=== PATIENT | female | born 1980 | race Caucasian/White ===

== ENCOUNTER 2017-08-03 21:39 | Emergency (ER) | payer OTHER ==
[2017-08-03] MEDS: IPRATRPIUM/ALBUTEROL 0.5/2.5MG 3 ML NEBU. NEB ×2 (22:45)
[2017-08-03 22:53] LABS: INFLUENZA A PATIENT NEGATIVE (NEGATIVE); INFLUENZA B PATIENT NEGATIVE (NEGATIVE); OBC FLU VALID
== END 2017-08-03 23:28 | disposition home or self-care (01) ==
LOC: ER 21:39
DX: J40 Bronchitis, not specified as acute or chronic (principal)
CPT/HCPCS: 71046; 87804; 87804-59; 94640; 99285-25; J7620

== ENCOUNTER 2019-02-14 15:49 | Emergency (ER) | payer OTHER ==
[~2019-02-14] VITALS: Ht 144.8 cm; Wt 90.7 kg
[~2019-02-14 15:49] MED LIST: ALBU2.5V8 INH; AZIT250T PO; BENZ100C PO; HYDR-3164 PO; NAPR-682 PO; PRED50TA PO
[2019-02-14 17:05] VITALS: BP 132/83
--- NOTE | 2019-02-14 17:13 | PHYS DOC ---
Past Medical History Past Medical History: No Pertinent History Past Surgical History: Additional Past Surgical Histo: x 2 Alcohol Use: Rarely Drug Use: None Adult General Chief Complaint Chief Complaint: LACERATION/AVULSION HPI HPI Patient is a 38 year old female that presents after slicing potatoes and cutting part of her third right digit. Patient states her pain as 7 out of 10 in severity and throbs. The patient denies taking medicine prior to arrival. She states this happened around 3:00 PM today. Review of Systems Review of Systems Constitutional: Denies fever or chills [] Eyes: Denies change in visual acuity, redness, or eye pain [] HENT: Denies nasal congestion or sore throat [] Respiratory: Denies cough or shortness of breath [] Cardiovascular: No additional information not addressed in HPI [] GI: Denies abdominal pain, nausea, vomiting, bloody stools or diarrhea [] : Denies dysuria or hematuria [] Musculoskeletal: Denies back pain or joint pain [] Integument: Reports cut to R 3rd digit Neurologic: Denies headache, focal weakness or sensory changes [] Endocrine: Denies polyuria or polydipsia [] Complete systems were reviewed and found to be within normal limits, except as documented in this note. Allergies Allergies Allergies Coded Allergies Type Severity Reaction Last Updated Verified No Known Drug Allergies 09/06/13 No Physical Exam Physical Exam Constitutional: Well developed, well nourished, no acute distress, non-toxic appearance. [] HENT: Normocephalic, atraumatic, bilateral external ears normal, oropharynx thalia st, no oral exudates, nose normal. [] Eyes: PERRLA, EOMI, conjunctiva normal, no discharge. [] Neck: Normal range of motion, no tenderness, supple, no stridor. [] Cardiovascular:Heart rate regular rhythm, no murmur [] Lungs & Thorax: Bilateral breath sounds clear to auscultation [] Abdomen: Bowel sounds normal, soft, no tenderness, no masses, no pulsatile masses. [] Skin: Fingertip avulsion R 3rd digit. Back: No tenderness, no CVA tenderness. [] Extremities: No tenderness, no cyanosis, no clubbing, ROM intact, no edema. [] Neurologic: Alert and oriented X 3, normal motor function, normal sensory function, no focal deficits noted. [] Psychologic: Affect normal, judgement normal, mood normal. [] EKG EKG [] Radiology/Procedures Radiology/Procedures [] Course & Med Decision Making Course & Med Decision Making Pertinent Labs and Imaging studies reviewed. (See chart for details) Patient is a fingertip avulsion to the right third digit. Discussed with patient and advised her to keep a dressing on it and use Neosporin. Patient had a Tetanus shot last year. Dragon Disclaimer Dragon Disclaimer This electronic medical record was generated, in whole or in part, using a voice recognition dictation system. Departure Departure Impression: Primary Impression: Fingertip avulsion Disposition: HOME, SELF-CARE Condition: STABLE Referrals: LINA LINDA MD (PCP) Patient Instructions: Finger Avulsion Additional Instructions: Thank you for visiting [facility]. We appreciate you trusting us with your care. If any additional problems come up don't hesitate to return to visit us. Please follow up with your primary care provider so they can plan additional care if needed and know about the problem that you had. If symptoms worsen come back to the Emergency Department. Any concerning symptoms that start such as chest pain, shortness of air, weakness or numbness on one side of the body, running high fevers or any other concerning symptoms return to the ER. Keep a dressing on fingertip and use Neosporin. If you notice any signs and symptoms of infection return to ER. Problem Qualifiers Primary Impression: Fingertip avulsion Encounter type: initial encounter Qualified Codes: S61.209A - Unspecified open wound of unspecified finger without damage to nail, initial encounter LINA JUARES APRN Feb 14, 2019 17:13
== END 2019-02-14 17:27 | disposition home or self-care (01) ==
LOC: ER 15:49
DX: S61.202A Unspecified open wound of right middle finger without damage to nail, initial encounter (principal); Z98.890 Other specified postprocedural states; W26.8XXA Contact with other sharp object(s), not elsewhere classified, initial encounter; Y93.G3 Activity, cooking and baking; Y92.009 Unspecified place in unspecified non-institutional (private) residence as the place of occurrence of the external cause; Y99.8 Other external cause status
CPT/HCPCS: 99282

== ENCOUNTER 2021-01-19 15:08 | Emergency (ER) | payer OTHER ==
[~2021-01-19] VITALS: Ht 144.8 cm; Wt 100.0 kg
[2021-01-19 17:40] VITALS: BP 160/110
[2021-01-19] MEDS ORDERED: AMOX500C PO (18:02)
--- NOTE | 2021-01-19 18:02 | PHYS DOC ---
Past Medical History Past Medical History: No Pertinent History Past Surgical History: , Tubal ligation Additional Past Surgical Histo: x 2 Smoking Status: Never Smoker Alcohol Use: Rarely Drug Use: None General Adult EDM: Chief Complaint: EARACHE/EAR PAIN HPI: HPI: Patient is a 40 year old female who presents with left ear pain for the last week. She denies any swimming, fever, headache, dizziness, nausea, vomiting, dental pain, facial swelling. Patient has a history of and tubal ligation. She rates her pain at a 7 out of 10. She states she has been using naproxen and Tylenol for pain. Review of Systems: Review of Systems: Constitutional: Denies fever or chills. [] Eyes: Denies change in visual acuity. [] HENT: Denies nasal congestion or sore throat. + Left ear pain [] Respiratory: Denies cough or shortness of breath. [] Cardiovascular: Denies chest pain or edema. [] GI: Denies abdominal pain, nausea, vomiting, bloody stools or diarrhea. [] : Denies dysuria. [] Musculoskeletal: Denies back pain or joint pain. [] Integument: Denies rash. [] Neurologic: Denies headache, focal weakness or sensory changes. [] Endocrine: Denies polyuria or polydipsia. [] Lymphatic: Denies swollen glands. [] Psychiatric: Denies depression or anxiety. [] Heart Score: C/O Chest Pain: No Risk Factors: Risk Factors: DM, Current or recent (<one month) smoker, HTN, HLP, family history of CAD, obesity. Risk Scores: Score 0 - 3: 2.5% MACE over next 6 weeks - Discharge Home Score 4 - 6: 20.3% MACE over next 6 weeks - Admit for Clinical Observation Score 7 - 10: 72.7% MACE over next 6 weeks - Early Invasive Strategies Allergies: Allergies: Allergies Coded Allergies Type Severity Reaction Last Updated Verified No Known Drug Allergies 09/06/13 No Physical Exam: PE: Constitutional: Well developed, well nourished, no acute distress, non-toxic appearance. [] HENT: Normocephalic, atraumatic, bilateral external ears normal, oropharynx moist, no oral exudates, nose normal. Left ear tympanic reddened and foggy. [] Eyes: PERRLA, EOMI, conjunctiva normal, no discharge. [] Neck: Normal range of motion, no tenderness, supple, no stridor. [] Cardiovascular:Heart rate regular rhythm, no murmur [] Lungs & Thorax: Bilateral breath sounds clear to auscultation [] Abdomen: Bowel sounds normal, soft, no tenderness, no masses, no pulsatile masses. [] Skin: Warm, dry, no erythema, no rash. [] Back: No tenderness, no CVA tenderness. [] Extremities: No tenderness, no cyanosis, no clubbing, ROM intact, no edema. [] Neurologic: Alert and oriented X 3, normal motor function, normal sensory fun ction, no focal deficits noted. [] Psychologic: Affect normal, judgement normal, mood normal. [] EKG: EKG: [] Radiology/Procedures: Radiology/Procedures: [] Course & Med Decision Making: Course & Med Decision Making Pertinent Labs and Imaging studies reviewed. (See chart for details) See HPI. Alert and oriented x4. Ambulatory with steady gait. Speaks in full clear sentences. Vital signs within normal limits. Afebrile. Left ear tympanic is reddened and tender upon examination but the tympanic is intact. No joint tenderness. No dental caries or abscess seen. [] Dragon Disclaimer: Dragon Disclaimer: This electronic medical record was generated, in whole or in part, using a voice recognition dictation system. Departure Departure Impression: Primary Impression: Otitis media Qualified Codes: H66.90 - Otitis media, unspecified, unspecified ear Disposition: HOME / SELF CARE / HOMELESS Condition: STABLE Referrals: LINA LINDA MD (PCP) Patient Instructions: Otitis Media, Adult Additional Instructions: Follow-up with your primary care provider. Take antibiotic as prescribed and with food. Plenty of fluids. Scripts Amoxicillin (AMOXICILLIN) 500 Mg Capsule 1 CAP PO BID, #20 CAP Prov: NANETTE RINCON APRN 01/19/21 NANETTE RINCON [employer] Jan 19, 2021 18:02
[2021-01-19] MEDS ORDERED: DEXAMETHASONE 4 MG TABLET PO ONE (18:15)
== END 2021-01-19 18:17 | disposition home or self-care (01) ==
LOC: ER 15:08
DX: H66.92 Otitis media, unspecified, left ear (principal)
CPT/HCPCS: 99283

== ENCOUNTER 2021-03-18 21:03 | Emergency (ER) | payer OTHER ==
[~2021-03-18] VITALS: Ht 152.4 cm; Wt 103.0 kg
[~2021-03-18 21:03] MED LIST changes: +AMOX500C PO
[2021-03-18] MEDS ORDERED: CYCL10TA2 PO (22:14)
[2021-03-18] MEDS ORDERED: NAPR-514 PO (22:14)
--- NOTE | 2021-03-18 22:14 | PHYS DOC ---
Past Medical History Past Medical History: No Pertinent History (BASILLINDA Lawson CHIE[employer]ERV[employer]IR ENGINEERING) Past Surgical History: , Tubal ligation Additional Past Surgical Histo: x 2 (LINDA GRACIA Lulu CHIEF [employer]ERV[employer] ENGINEERING) Smoking Status: Never Smoker Alcohol Use: Rarely Drug Use: None (BASILLINDA Lawson CHIEF [employer]ERV[employer] ENGINEERING) General Adult EDM: Chief Complaint: MECHANICAL FALL HPI: HPI: Patient is a 40 year old female who presents to the ED today to be evaluated after falling this morning. She states she missed 1 step and fell down. Denies any loss of consciousness. Denies hitting her head on the ground. Denies being on any blood thinners. 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 She is complaining of right ankle pain, right knee pain, right forearm pain, and left mid back jewel n. Rates the pain as 4 out of 10 and described as a throbbing intermittent worse on certain movements. (BASILLINDA Lawson CHIE[employer]ERV[employer] ENGINEERING) Review of Systems: Review of Systems: Constitutional: Denies fever or chills. [] Eyes: Denies change in visual acuity. [] HENT: Denies nasal congestion or sore throat. [] Respiratory: Denies cough or shortness of breath. [] Cardiovascular: Denies chest pain or edema. [] GI: Denies abdominal pain, nausea, vomiting, bloody stools or diarrhea. [] : Denies dysuria. [] Musculoskeletal: Reports right ankle pain, right knee pain, right forearm pain, and left mid back pain Integument: Denies rash. [] Neurologic: Denies headache, focal weakness or sensory changes. [] ] Psychiatric: Denies depression or anxiety. [] (LINDA GRACIA [employer]IE[employer] ENGINEERING) Heart Score: C/O Chest Pain: N/A Risk Factors: Risk Factors: DM, Current or recent (<one month) smoker, HTN, HLP, family history of CAD, obesity. Risk Scores: Score 0 - 3: 2.5% MACE over next 6 weeks - Discharge Home Score 4 - 6: 20.3% MACE over next 6 weeks - Admit for Clinical Observation Score 7 - 10: 72.7% MACE over next 6 weeks - Early Invasive Strategies (LINDA GRACIA APRN) Allergies: Allergies: Allergies Coded Allergies Type Severity Reaction Last Updated Verified No Known Drug Allergies 09/06/13 No (LINDA GRACIA APRN) Physical Exam: PE: Constitutional: Well developed, well nourished, no acute distress, non-toxic appearance. [] HENT: Normocephalic, atraumatic, bilateral external ears normal, oropharynx moist, no oral exudates, nose normal. [] Eyes: PERRLA, EOMI, conjunctiva normal, no discharge. [] Neck: Normal range of motion, no tenderness, supple, no stridor. [] Cardiovascular:Heart rate regular rhythm, no murmur [] Lungs & Thorax: Bilateral breath sounds clear to auscultation [] Abdomen: Bowel sounds normal, soft, no tenderness, no masses, no pulsatile masses. [] Skin: Warm, dry, no erythema, no rash. [] Back: Diffuse paraspinal muscle tenderness to the left thoracic spine, no midline thoracic spine tenderness, no CVA tenderness. [] Extremities: No tenderness, no cyanosis, no clubbing, ROM intact, no edema. [] Neurologic: Alert and oriented X 3, normal motor function, normal sensory function, no focal deficits noted. [] Psychologic: Affect normal, judgement normal, mood normal. [] (LINDA GRACIA APRN) Current Patient Data: Labs: Laboratory Tests Test 03/18/21 21:27 POC Urine HCG, Qualitative Hcg negative (Negative) Vital Signs: Vital Signs Date Time Temp Pulse Resp B/P (MAP) Pulse Ox O2 Delivery O2 Flow Rate FiO2 03/18/21 21:30 98.4 100 18 170/104 (126) 97 Room Air 98.4 (LINDA GRACIA [employer]IE[employer] ENGINEERING) EKG: EKG: [] (LINDA GRACIA [employer]IE[employer] ENGINEERING) Radiology/Procedures: Radiology/Procedures: [] (LINDA GRACIA APRN) Course & Med Decision Making: Course & Med Decision Making Pertinent Labs and Imaging studies reviewed. (See chart for details) This a 40-year-old female patient presented to the ED today to be evaluated after falling this morning no LOC patient is complaining of right ankle pain, right knee pain, right forearm pain, and left mid back pain. Patient is up and ambulating and using upper and lower extremities with no difficulties. She was discharged to home. F/u with PCP as needed. (LINDA GRACIA APRN) Course & Med Decision Making Care and Treatment plan independently provided by [employer] ASSIST[employer]. I was available for consult. Patients chart reviewed. (NADIA MITCHELL DO) Stephania Disclaimer: Stephania Disclaimer: This electronic medical record was generated, in whole or in part, using a voice recognition dictation system. (LINDA GRACIA APRN) Departure Departure Impression: Primary Impression: Fall Qualified Codes: W19.XXXA - Unspecified fall, initial encounter Additional Impression: Musculoskeletal pain Disposition: HOME / SELF CARE / HOMELESS Condition: STABLE Referrals: LINA LINDA MD (PCP) follow up in one week Patient Instructions: Fall Prevention and Home Safety, Musculoskeletal Pain Additional Instructions: You were evaluated in the emergency room for fall. Try to ice and elevate the affected extremities. You can take [id number] pain relievers as needed. We will also sent a prescription for a muscle relaxer to [facility]. Come back to the ED at any point symptoms worsen otherwise follow-up with your own doctor Scripts Naproxen (NAPROXEN) 500 Mg Tablet 1 TAB PO BID for pain, #20 TAB 0 Refills Prov: LINDA GRACIA APRN 03/18/21 Cyclobenzaprine Hcl (CYCLOBENZAPRINE HCL) 10 Mg Tablet 1 TAB PO TID, #30 TAB Prov: LINDA GRACIA APRN 03/18/21 LINDA GRACIA APRN Mar 18, 2021 22:14 NADIA MITCHELL DO Mar 22, 2021 18:18
[2021-03-18 22:23] VITALS: BP 171/92
== END 2021-03-18 23:35 | disposition home or self-care (01) ==
LOC: ER 21:03
DX: M25.571 Pain in right ankle and joints of right foot (principal); M25.561 Pain in right knee; M79.631 Pain in right forearm; M54.6 Pain in thoracic spine; Z98.890 Other specified postprocedural states; Z98.51 Tubal ligation status; W10.8XXA Fall (on) (from) other stairs and steps, initial encounter; Y93.89 Activity, other specified; Y92.89 Other specified places as the place of occurrence of the external cause; Y99.8 Other external cause status
CPT/HCPCS: 81025; 99284

== ENCOUNTER 2021-07-27 21:48 | Emergency (ER) | payer OTHER ==
[~2021-07-27 21:48] MED LIST changes: +CYCL10TA19 PO; +NAPR-514 PO
== END 2021-07-27 23:26 | disposition left against medical advice (07) ==
LOC: ER 21:48
DX: R06.02 Shortness of breath (principal); Z53.21 Procedure and treatment not carried out due to patient leaving prior to being seen by health care provider